=== PATIENT | male | born 1950 | race Caucasian/White ===

== ENCOUNTER 2021-02-22 02:45 | Inpatient (IN) | payer MEDICARE, OTHER, SELFPAY ==
[2021-02-22] VITALS (27 sets, daily range): BP systolic 109–150; BP diastolic 56–95; PULSE 63–106; RESP 16–33; TEMP 35.7–36.9; O2SAT 91–100; BMI 38.0; BMI 36.8
--- NOTE | ~2021-02-22 | XR_ITS ---
EXAMINATION: XR chest 1V portable EXAM DATE: 02/22/2021 03:34 INDICATION: cough,sob,hx copd and CHF. TECHNIQUE: Portable AP frontal chest x-ray was obtained. There is no prior study for comparison. FINDINGS: There is moderate amount of bibasilar pneumonia or edema. There is enlarged cardiac silhoue tte. There is a dual lead pacemaker/AICD seen with leads projecting over the expected locations of th e right atrial appendage and right ventricle. Small pleural effusion. IMPRESSION: 1. Bibasilar pneumonia or edema. 2. Cardiomegaly and/or pericardial effusion. 3. Small left pleural effusion. Reviewed, dictated and finalized at location A. STRAIGHTENER
--- NOTE | 2021-02-22 02:46 | ECG_ITS ---
Measurements Intervals [place] Rate: 79 P: [place]: 0 QRS: 40 QRSD: 169 T: -44 QT: 449 QTc: 516 Interpretive Statements ATRIAL FIBRILLATION ELECTRONIC VENTRICULAR PACEMAKER COMPLEXES RIGHT BUNDLE BRANCH BLOCK BASELINE ARTIFACT- I, II, AVR, AVF, V1, V3-V5 ABNORMAL ECG Electronically Signed On 02-22-2021 7:48:06 CARD CLOTHIER by Kelvin Guzmán D.O.
--- NOTE | 2021-02-22 02:52 | ED.SOB ---
HPI - SOB/Dyspnea General Chief Complaint: Shortness of Breath/Dyspnea Stated Complaint: sob ra 70's, cpap 90-92 % Source: RN notes reviewed History of Present Illness HPI Narrative: Patient presents emergency department from home via EMS for shortness of breath. Patient states he had a cough for the past several days states has been nonproductive and he has had history of having to Covid vaccinations. This evening the patient woke up from sleep coughing and feeling short of breath when EMS arrived the patient was noted to be satting in the 70s at that time the patient was started on CPAP with improvement to the upper 80s patient states he does have a history of COPD and CHF he denies any increased swelling he denies any denies any chest pain at this time Related Data Allergies Allergy/AdvReac Type Severity Reaction Status Date / Time codeine Allergy Rash Verified 02/22/21 02:56 Penicillins Allergy Unknown Verified 02/22/21 02:56 Review of Systems Review of Systems: Gen.: Denies fevers or chills ENT: Denies congestion Respiratory: See HPI CV: Denies chest pain or palpitations GI: Denies abdominal pain nausea, emesis or diarrhea denies burning, urgency, frequency or hematuria Musculoskeletal: Denies back pain or muscle pain Neuro: Denies numbness, tingling, weakness or focal weakness Skin: Denies rash Except as documented, all other systems reviewed and negative [facility] Past Medical History Medical History (Updated 02/22/21 @ 04:42 by Jabier Vaz DO) CHF (congestive heart failure) COPD (chronic obstructive pulmonary disease) Social History Social History (Updated 02/22/21 @ 04:40 by Jabier Vaz DO) Smoking status: Former smoker Exam Narrative: APPEARANCE: Moderate respiratory distress sitting upright speaking in short phrases HEENT: Normocephalic, atraumatic OMM RESPIRATORY: No respiratory distress sitting upright speaking in short phrases decreased breath sounds at the bilateral lung avalos with coarse breath sounds in the bilateral lung bases CARDIOVASCULAR: Regular rate and rhythm without murmurs rubs or gallops. ABDOMINAL: Soft, nontender, nondistended, no rebound or guarding MUSCULOSKELETAl: Moves all extremities. No clubbing, cyanosis or edema. Bilateral calves soft and nontender NEURO: Awake and alert. Following commands, speech normal, no focal deficits SKIN:: Warm, dry. Normal Color PSYCHIATRIC: Normal affect/mood, Course Course Emergency Course: Patient placed on BiPAP in ED with improvement of oxygenation status Discussed Dr. Escobar presentation work-up agrees with admission at this time. Request patient swab for COVID-19 Discussed with patient and family results of workup and diagnosis. Discussed need for admission. Patient and family understand and agree to current treatment plan Vital Signs Vital signs: Vital Signs Pulse Rate 72 02/22/21 02:41 Respiratory Rate 23 H 02/22/21 02:41 Blood Pressure 132/76 02/22/21 02:41 Pulse Oximetry 91 02/22/21 02:41 Pulse Rate 65 02/22/21 04:22 Respiratory Rate 25 H 02/22/21 04:22 Blood Pressure 116/68 02/22/21 04:22 Pulse Oximetry 97 02/22/21 04:22 MDM - SOB/Dyspnea Lab Data Result diagrams: 02/22/21 02:56 02/22/21 02:56 Labs: Lab Results 02/22/21 02/22/21 02/22/21 Range/Units 02:56 02:56 02:56 WBC 5.7 (4.5-10.0) K/mm3 RBC 5.00 (4.6-6.20) M/mm3 Hgb 15.8 (14.0-18.0) g/dL Hct 47.5 (42.0-52.0) % MCV 95.0 (80-100) fl MCH 31.6 (26-34) pg MCHC 33.3 (32-36) g/dl RDW 14.2 (11.5-14.5) % Plt Count 137 L (150-375) k/mm3 MPV 11.9 H (7.4-10.4) fl Immature Gran % (Auto) 0.7 H (0-0.5) % Neut % (Auto) 72.9 (45.5-73.1) % Lymph % (Auto) 17.3 L (18.3-44.2) % Coffey % (Auto) 4.9 (2.6-8.5) % Eos % (Auto) 3.3 (0-4.4) % Baso % (Auto) 0.9 (0.2-1.2) % Lymph # (Auto) 0.99 (0.9-3.2) K/mm3 Coffey # (Auto) 0.3 (0.
[2021-02-22] MEDS: ALBUTEROL SULFATE NEB 2.5 MG/0.5 ML INH 5 MG INHALATION ×3 (03:04→21:23)
[2021-02-22] MEDS: IPRATROPIUM BR 0.02% INH SOLN 0.5 MG/2.5 ML VIAL INHALATION ×3 (03:04→21:22)
[2021-02-22] MEDS: methylPREDNISolone SOD SUCC 125 MG VIAL IV PUSH (03:05)
[2021-02-22 03:13] LABS: Alveolar/Arterial O2 Gradient 549.9 mmHg; Base Excess ABG -3.4 mEq/l (+/-2.0); Device BIPAP; Expiratory Pressure 8 cmH2O; Fractional Inspired Oxygen 100 %; HCO3 ABG 20.8 mEq/l (22.0-26.0); Inspiratory Pressure 14 cmH2O; Modified Allen's Test Pass; Oxygen Content ABG 21.1 %vol (16.0-22.0); Oxygen Saturation ABG 98.5 % (95.0-100.0); Oxyhemoglobin 95.5 % THb (90.0-100.0); PCO2 ABG 35.2 mmHg (35.0-45.0); PO2 ABG 127.9 mmHg (80.0-100.0); PO2 FiO2 Ratio Arterial Blood 1.28 %; Site Drawn LEFT RADIAL; Total Hemoglobin 15.6 g/dL (12.0-18.0); pH ABG 7.389 (7.350-7.450)
[2021-02-22 03:22] LABS: Basophils Absolute Auto 0.1 K/mm3 (0.0-0.1); Basophils Percent Auto 0.9 % (0.2-1.2); Eosinophils Absolute Auto 0.2 K/mm3 (0-0.3); Eosinophils Percent Auto 3.3 % (0-4.4); Hematocrit 47.5 % (42.0-52.0); Hemoglobin 15.8 g/dL (14.0-18.0); Immature Granulocyte Absolute 0.04 K/mm3 (0.00-0.031); Immature Granulocyte Percent A 0.7 % (0-0.5); Immature Platelet Fraction Pct 10.4 % (0.9-11.2); Lymphocytes Absolute Auto 0.99 K/mm3 (0.9-3.2); Lymphocytes Percent Auto 17.3 % (18.3-44.2); Mean Corpuscular HGB Conc 33.3 g/dl (32-36); Mean Corpuscular Hemoglobin 31.6 pg (26-34); Mean Platelet Volume 11.9 fl (7.4-10.4); Monocytes Absolute Auto 0.3 K/mm3 (0.1-0.6); Monocytes Percent Auto 4.9 % (2.6-8.5); Neutrophils Absolute Auto 4.2 K/mm3 (1.3-6.7); Neutrophils Percent Auto 72.9 % (45.5-73.1); Platelet Count Result 137 k/mm3 (150-375); Red Cell Distribution Width 14.2 % (11.5-14.5); White Blood Count 5.7 K/mm3 (4.5-10.0)
[2021-02-22 03:30] LABS: Lactic Acid Reflex 1.1 mmol/L (0.7-2.1)
[2021-02-22 03:31] LABS: Alanine Aminotransferase 23 U/L (4-50); Albumin Level 4.5 g/dL (3.5-5.1); Alkaline Phosphatase 108 U/L (38-126); Anion Gap 7 mmol/L (8-16); Aspartate Amino Transferase 31 U/L (17-59); Bilirubin,Total 0.8 mg/dL (0.2-1.3); Blood Urea Nitrogen 15 mg/dL (9-20); Calcium 8.2 mg/dL (8.4-10.2); Carbon Dioxide 20 mmol/L (22-30); Chloride 103 mmol/L (98-107); Estimated CRCL calculation 103 ml/min; Estimated Glomerular Filt Rate > 60; Glucose 127 mg/dL (65-110); Potassium 4.8 mmol/L (3.4-5.0); Sodium 130 mmol/L (137-145)
[2021-02-22 03:47] LABS: INR 1.1; Prothrombin Time 13.7 Seconds (11.1-14.7)
[2021-02-22 03:48] LABS: Partial Thromboplastin Time 52.7 SECONDS (22.3-36.8)
[2021-02-22 03:49] LABS: NT Pro B Type Natriuretic Pept 1690 pg/mL (5-100); Troponin I < 0.012 ng/mL (0.000-0.034)
[2021-02-22] MEDS: SODIUM CHLORIDE 0.9% IV 1,000 ML 999 ML IV CONT (03:55)
--- NOTE | 2021-02-22 06:38 | ADMGEN ---
This patient, Braden Costa, was admitted to [facility] Bed Second Floor-2. Patient/family oriented to hospital policies and general routines including ID bracelet, bed and alarms, visiting hours, pain management, procedures, bathroom and other care routines, personal items, smoking policy, room service/diet, and visiting hours. Information on how to activate the Rapid Response Team has been discussed. Patient/Family are encouraged to report perceived risks to care and to ask questions if they do not understand what they are told or what they should do.
[2021-02-22 07:26] LABS: Troponin I < 0.012 ng/mL (0.000-0.034)
--- NOTE | 2021-02-22 08:03 | PM.IMHP ---
H&P: HPI History of Present Illness Date/Time: 02/22/21 08:03 Chief Complaint: shortness of breath Narrative: Patient presents to the ED from home for shortness of breath. He reports that he came back from [place] last evening when to better 6:00 p.m. woke up suddenly at 2:00 a.m. 10 short of breath associated cough. He denies any chest pain or leg swelling. He has history of COPD as well as CHF, atrial fibrillation has pacemaker and AICD placed. He has been vaccinated for COVID x2. He has not gotten his booster yet. He reports he has been having mild cough over the past few days and was wheezy when he got short of breath last night. He called EMS who arrived and he is oxygen saturation was is 70s when EMS arrived. He was started on CPAP with improvement. He was brought to the ER has been placed on BiPAP since his been in the ER is taken off the BiPAP this morning and has has been feeling well. He has been placed on high-flow nasal cannula in the ER. He flew to [place] a week or 2 ago to visit his daughter. He does take Eliquis and has been taking it regularly. Review of Systems Review of Systems: - CONSTITUTIONAL: Denies weight loss, fever and chills. - HEENT: Denies changes in vision and hearing - RESPIRATORY: Reports SOB and cough. - CV: Denies palpitations and CP. - GI: Denies abdominal pain, nausea, vomiting and diarrhea. - : Denies dysuria and urinary frequency. - MSK: Denies myalgia and joint pain. - SKIN: Denies rash and pruritus. - NEUROLOGICAL: Denies headache and syncope. - PSYCHIATRIC: Denies recent changes in mood. Denies anxiety and depression. All systems reviewed & are unremarkable except as noted in HPI and below Constitutional: Constitutional: Reports fatigue and Reports weakness Neurologic: Reports weakness Endocrine: Endocrine: Reports fatigue [facility] Past Medical History Medical History (Updated 02/22/21 @ 04:42 by Jabier Vaz DO) CHF (congestive heart failure) COPD (chronic obstructive pulmonary disease) Social History Social History (Updated 02/22/21 @ 04:40 by Jabier Vaz DO) Years smoked: 49 Smoking status: Current every day smoker Tobacco type: cigarettes Additional smoking assessment comments: smoked 3 ppd for many years Alcohol intake: former Substance use: never Gender identity (if verbalized by the patient): Male Spiritual care concerns: No Meds Home Medications and Allergies Home Medications Medication Instructions Recorded Confirmed Type amiodarone 200 mg PO DAILY 02/22/21 02/22/21 History amlodipine 10 mg PO DAILY 02/22/21 02/22/21 History apixaban [Eliquis] 5 mg PO BID 02/22/21 02/22/21 History atorvastatin 80 mg PO DAILY 02/22/21 02/22/21 History carvedilol 50 mg PO Q12H 02/22/21 02/22/21 History lisinopril 40 mg PO DAILY 02/22/21 02/22/21 History metformin 500 mg PO BIDWMEAL 02/22/21 02/22/21 History pantoprazole [Protonix] 40 mg PO QAM 02/22/21 02/22/21 History Allergies Allergy/AdvReac Type Severity Reaction Status Date / Time codeine Allergy Rash Verified 02/22/21 02:56 Penicillins Allergy Unknown Verified 02/22/21 02:56 Vital Signs Vital Signs - 24 hr 02/22/21 02:41 02/22/21 02:54 02/22/21 02:56 Pulse Rate 72 70 Respiratory Rate 23 H 26 H Blood Pressure 132/76 Pulse Oximetry 91 94 95 02/22/21 03:04 02/22/21 03:21 02/22/21 03:24 Pulse Rate 67 63 Respiratory Rate 22 H 19 Blood Pressure 109/58 L Pulse Oximetry 99 100 02/22/21 03:25 02/22/21 04:22 02/22/21 05:40 Pulse Rate 68 65 71 Respiratory Rate 20 25 H 33 H Blood Pressure 116/68 Pulse Oximetry 97 96 02/22/21 05:41 02/22/21 06:22 02/22/21 06:43 Pulse Rate 75 74 71 Respiratory Rate 17 21 H 18 Blood Pressure 130/95 H 150/77 H Pulse Oximetry 96 99 99 02/22/21 07:19 Pulse Rate 68 Respiratory Rate 18 Blood Pressure 132/76 Pulse Oximetry 98 Exam Narrative: APPEARANCE: No respiratory distress current
--- NOTE | 2021-02-22 08:26 | PC.NURSE ---
Patient requesting food and water but did not have diet order. Called Dr. Douglas at this time. Informed to take patient off bipap and see how he tolerates and to do a cardiac diet. This order was placed. ED resp called. Removed bipap. Patient tolerating nasal canula well. Meal tray ordered. Will continue to monitor patient.
[2021-02-22 09:38] LABS: Troponin I < 0.012 ng/mL (0.000-0.034)
--- NOTE | 2021-02-22 13:30 | PC.NURSE ---
called the hospital doctor who will be seeing this patient regarding home medications. Reports he will be coming down soon to see patient. Will continue to monitor patient.
[2021-02-22] MEDS: APIXABAN 5 MG TABLET PO (15:58)
[2021-02-22] MEDS: amLODIPine BESYLATE 5 MG TABLET 10 MG PO (15:59)
[2021-02-22] MEDS: AMIODARONE HCL 200 MG TABLET PO (15:59)
[2021-02-22] MEDS: carvediloL 25 MG TABLET 50 MG PO (15:59)
[2021-02-22] MEDS: PANTOPRAZOLE 40 MG TABLET PO (16:00)
[2021-02-22] MEDS: lisinopriL 20 MG TABLET 40 MG PO (16:00)
[2021-02-22] MEDS: methylPREDNISolone SOD SUCC 40 MG VIAL IV PUSH ×2 (16:01→21:00)
[2021-02-22 17:34] LABS: Glucose Point of Care 172 mg/dl (65-105)
[2021-02-22 17:35] LABS: SARS-CoV-2 RNA PCR Negative (Negative)
--- NOTE | 2021-02-22 17:38 | PC.NURSE ---
Report called to IMU at this time.
[2021-02-22 19:14] LABS: Hemoglobin A1C 6.5 % (<5.7)
[2021-02-22] MEDS: ATORVASTATIN 40 MG TABLET 80 MG PO (20:30)
[2021-02-22 21:07] LABS: Glucose Point of Care 157 mg/dl (65-105)
[2021-02-23] VITALS (12 sets, daily range): BP systolic 110–166; BP diastolic 52–83; PULSE 70–86; RESP 16–30; TEMP 35.9–36.5; O2SAT 93–99
--- NOTE | 2021-02-23 | ECHO_ITS ---
Patient Info Name: Braden Costa Age: 70 years : 1950 Gender: Male Ht: 68 in Wt: 250 lbs BSA: 2.38 m2 HR: 75 bpm BP: 126 / 63 mmHg Heart Rhythm: Atrial Fibrillation Technical Quality: Fair Exam Date: 02/23/2021 8:30 AM Exam Location: [facility] Patient Status: Inpatient Admit Date: 02/22/2021 Staff Ordering Physician: Epi Douglas MD Post Anesthesia Care Unit Nurse: Bruna Sheets RDCS Attending Provider: Bi Odom MD Exam Type: CA echo doppler color flow Study Info Indications - CHF Complete two-dimensional, color flow and Doppler transthoracic echocardiogram is performed. Summary 1. Complete two-dimensional, color flow and Doppler transthoracic echocardiogram is performed. 2. Left ventricular chamber dimension is moderately enlarged. 3. Left ventricular systolic function is mildly reduced, estimated at 45-50%. 4. There is moderately increased left ventricular wall thickness. 5. The left ventricular diastolic function is grade II diastolic dysfunction. 6. The basal inferior wall, basal inferolateral wall, and mid inferolateral wall are akinetic. 7. The anterolateral wall, apical inferior wall, and mid inferior wall are hypokinetic. 8. Left atrial chamber dimension is moderately enlarged. 9. Right atrial chamber dimension is mildly enlarged. 10. There is mild to moderate aortic valve regurgitation. 11. There is mild mitral valve regurgitation. 12. There is mild tricuspid valve regurgitation. 13. Mild pulmonary hypertension, estimated pulmonary arterial systolic pressure is 39 mmHg. 14. There is mild pulmonic regurgitation. 15. The aortic root size at the sinus of Valsalva is moderately dilated. 16. The prox ascending aorta size is moderately dilated. 17. Maintenance evaluation of the aortic root enlargement should be performed as an outpatient as it measures up to 4.9 cm. Left Ventricle Left ventricular chamber dimension is moderately enlarged. Left ventricular systolic function is mildly reduced, estimated at 45-50%. There is moderately increased left ventricular wall thickness. The left ventricular diastolic function is grade II diastolic dysfunction. The basal inferior wall, basal inferolateral wall, and mid inferolateral wall are akinetic. The anterolateral wall, apical inferior wall, and mid inferior wall are hypokinetic. All other hale appear normal. Right Ventricle Right ventricular chamber dimension is normal. Right ventricular systolic function is normal. Left Atria Left atrial chamber dimension is moderately enlarged. Right Atria Right atrial chamber dimension is mildly enlarged. Atrial Septum Intact interatrial septum visualized by color flow imaging. Aortic Valve The aortic valve is trileaflet. There is mild aortic valve sclerosis. There is no aortic valve stenosis. There is mild to moderate aortic valve regurgitation. Pulmonic Valve The pulmonic valve is normal. There is no pulmonic valve stenosis. There is mild pulmonic regurgitation. Mitral Valve The mitral valve has thickened leaflets. There is no mitral valve stenosis. There is mild mitral valve regurgitation. Tricuspid Valve The tricuspid valve leaflets are normal. There is no significant tricuspid valve stenosis. There is mild tricuspid valve regurgitation. Mild pulmonary hypertension, estimated pulmonary arterial systolic pressure is 39 mmHg. Other Findings Maintenance evaluation of the aortic root enlargement should be performed as
[2021-02-23] MEDS: ALBUTEROL SULFATE NEB 2.5 MG/0.5 ML INH 5 MG INHALATION (03:33)
[2021-02-23] MEDS: IPRATROPIUM BR 0.02% INH SOLN 0.5 MG/2.5 ML VIAL INHALATION (03:34)
[2021-02-23] MEDS: methylPREDNISolone SOD SUCC 40 MG VIAL IV PUSH (05:11)
[2021-02-23 05:15] LABS: Basophils Percent Auto 0.1 % (0.2-1.2); Hematocrit 43.9 % (42.0-52.0); Hemoglobin 14.6 g/dL (14.0-18.0); Immature Granulocyte Absolute 0.07 K/mm3 (0.00-0.031); Immature Granulocyte Percent A 0.9 % (0-0.5); Lymphocytes Absolute Auto 0.59 K/mm3 (0.9-3.2); Lymphocytes Percent Auto 7.5 % (18.3-44.2); Mean Corpuscular HGB Conc 33.3 g/dl (32-36); Mean Corpuscular Hemoglobin 31.4 pg (26-34); Mean Corpuscular Volume 94.4 fl (80-100); Mean Platelet Volume 12.3 fl (7.4-10.4); Monocytes Absolute Auto 0.1 K/mm3 (0.1-0.6); Monocytes Percent Auto 1.6 % (2.6-8.5); Neutrophils Absolute Auto 7.1 K/mm3 (1.3-6.7); Neutrophils Percent Auto 89.9 % (45.5-73.1); Platelet Count Result 117 k/mm3 (150-375); Red Blood Count 4.65 M/mm3 (4.6-6.20); Red Cell Distribution Width 14.1 % (11.5-14.5); White Blood Count 7.9 K/mm3 (4.5-10.0)
[2021-02-23 05:29] LABS: Anion Gap 7 mmol/L (8-16); Blood Urea Nitrogen 17 mg/dL (9-20); Calcium 8.2 mg/dL (8.4-10.2); Carbon Dioxide 19 mmol/L (22-30); Chloride 104 mmol/L (98-107); Estimated CRCL calculation 102 ml/min; Estimated Glomerular Filt Rate > 60; Glucose 215 mg/dL (65-110); Potassium 4.3 mmol/L (3.4-5.0); Sodium 130 mmol/L (137-145)
[2021-02-23 08:10] LABS: Glucose Point of Care 149 mg/dl (65-105)
[2021-02-23] MEDS: PANTOPRAZOLE 40 MG TABLET PO (09:14)
[2021-02-23] MEDS: amLODIPine BESYLATE 5 MG TABLET 10 MG PO (09:14)
[2021-02-23] MEDS: APIXABAN 5 MG TABLET PO (09:15)
[2021-02-23] MEDS: carvediloL 25 MG TABLET 50 MG PO (09:15)
[2021-02-23] MEDS: lisinopriL 20 MG TABLET 40 MG PO (09:15)
[2021-02-23] MEDS: AMIODARONE HCL 200 MG TABLET PO (09:16)
[2021-02-23] MEDS: ATORVASTATIN 40 MG TABLET 80 MG PO (09:16)
[2021-02-23 11:58] LABS: Glucose Point of Care 176 mg/dl (65-105)
[2021-02-23] MEDS: SPIRONOLACTONE 25 MG TABLET PO (13:36)
--- NOTE | 2021-02-23 15:24 | PM.DS ---
DS: Admitting Diagnosis Discharge Date 02/23/2021 Admitting Diagnosis Shortness of breath DS: Discharge Diagnosis Discharge Diagnosis (1) Acute respiratory failure with hypoxia: Code(s): J96.01 - Acute respiratory failure with hypoxia Status: Acute (2) Community acquired pneumonia: Code(s): J18.9 - Pneumonia, unspecified organism Status: Acute (3) COPD (chronic obstructive pulmonary disease): Code(s): J44.9 - Chronic obstructive pulmonary disease, unspecified Status: Acute (4) CHF (congestive heart failure): Code(s): I50.9 - Heart failure, unspecified Status: Acute DS: Summary Hospital Course Hospital Course: Patient presents to the ED from home for shortness of breath. He reports that he came back from [place] last evening when to better 6:00 p.m. woke up suddenly at 2:00 a.m. 10 short of breath associated cough. He denies any chest pain or leg swelling. He has history of COPD as well as CHF, atrial fibrillation has pacemaker and AICD placed. He has been vaccinated for COVID x2. He has not gotten his booster yet. He reports he has been having mild cough over the past few days and was wheezy when he got short of breath last night. He called EMS who arrived and he is oxygen saturation was is 70s when EMS arrived. He was started on CPAP with improvement. He was brought to the ER has been placed on BiPAP since his been in the ER is taken off the BiPAP this morning and has has been feeling well. He has been placed on high-flow nasal cannula in the ER. He flew to [place] a week or 2 ago to visit his daughter. He does take Eliquis and has been taking it regularly. # acute hypoxic respiratory failure needing bipap on arrival. Oxygen saturation on is 70s upon EMS arrival at home. Treated with Solu Medrol and antibiotics in the ER. Chest x-ray with bibasilar pneumonia. Tapered his BiPAP and placed on high-flow nasal cannula subsequently the oxygen was tapered off. Remained off oxygen for the past 12 hours. Ambulated without any difficulty prior to discharge. He was COVID swab out and came back negative. Symptoms and presentation suggestive more of COPD exacerbation. No congestive changes in the chest x-ray however BNP mildly elevated which is probably chronic due to her history of the congestive heart failure and the AICD and pacemaker placement. The there is a history of recent travel however he is fully anticoagulated with apixaban and hence less likely to be pulmonary embolism as the etiology for his hypoxic respiratory failure. He was treated only for COPD exacerbation during hospital course with excellent response. Will continue to taper his steroid as outpatient basis along with oral antibiotics for a week and have him follow-up with his primary care. He is also moving to live in [place] with 1 of his kids and need to establish with cardiologists here due to his history of cardiac disease. # Bibasilar pneumonia Levaquin ordered which will be continued. Continue Levaquin at discharge # COVID suspect: COVID swab continue droplet precautions COVID swab came back negative # S/p AICD/pacemaker placement # Mild tcp continue to monitor # COPD exacerbation: will continue steroid solumedrol. bronchodilators. antibiotics. levaquin # CHF: BNP mildly elevated. possible exacerbation.continue home medications. On Lasix at home does not look volume overloaded. Continue to monitor volume status. Looks euvolemic continue his diuretic at discharge as previously prescribed # history of left leg DVT in the past # DVT proph:on apixaban # Code status: Full code discussed with the patient Time Spent with Patient Time attestation: Total time spent providing and/or coordinating discharge services: 40 minutes Exam Narrative: APPEARANCE: No respiratory distress currently comfortable on high-flow nasal cannula HEENT: Normocephalic, atraumatic RESPIRATORY: No respiratory distress sitting upright bila
== END 2021-02-23 17:02 | disposition home or self-care (01) | DRG 190 ==
LOC: ANHED 04:42 → ANH2MED 04:53 → ANHIMU 18:03 → ANH2MED 02-24 13:50 → ANHIMU 02-24 13:50
PROVIDERS: Admitting Provider Internal Medicine; Emergency Provider Emergency Medicine; PCP Hospitalist; Visit Provider Internal Medicine
DX: J44.1 Chronic obstructive pulmonary disease with (acute) exacerbation (principal); J96.01 Acute respiratory failure with hypoxia; J18.9 Pneumonia, unspecified organism; J44.0 Chronic obstructive pulmonary disease with (acute) lower respiratory infection; Z20.822 Contact with and (suspected) exposure to COVID-19; I50.9 Heart failure, unspecified; F17.210 Nicotine dependence, cigarettes, uncomplicated; Z79.01 Long term (current) use of anticoagulants; Z79.899 Other long term (current) drug therapy; Z95.810 Presence of automatic (implantable) cardiac defibrillator; Z86.718 Personal history of other venous thrombosis and embolism
CPT/HCPCS: 36415; 36600; 71045; 80048; 80053; 82805; 82948; 83036; 83605; 83880; 84484; 85025; 85055; 85610; 85730; 87040; 93005; 93306; 94640; 96365; 96375; 99291; A9270; C9803; G0378; J1956; J2920; J2930; J7030; U0003; U0005

== ENCOUNTER 2022-04-22 21:27 | Inpatient (IN) | payer MEDICARE, OTHER, SELFPAY ==
[2022-04-22] VITALS (7 sets, daily range): BP systolic 118–120; BP diastolic 88–95; PULSE 83–120; RESP 19–37; TEMP 36.6; O2SAT 87–100
--- NOTE | ~2022-04-22 | XR_ITS ---
XR chest 1V portable DATE: 04/22/2022 22:08 INDICATION: Dyspnea TECHNIQUE: Portable AP chest on April 22, 2022 at 2205 hours COMPARISON: 02/14/2021 portable AP chest FINDINGS: There are bilateral pulmonary infiltrates and/or atelectasis involving the mid and particul anastasiya lower lung zones. Cardiomegaly. Aortic calcification. Left dual-lead pacemaker with leads overlying right atrium and ri ght ventricle. No pleural effusion or pulmonary vascular congestion or pneumothorax is evident. IMPRESSION: Bilateral mid and particularly lower lung infiltrates and/or atelectasis Cardiomegaly, aortic atherosclerosis Bipolar pacemaker is Reviewed, dictated and finalized at location A. GETTER IMPRESSION: Bilateral mid and particularly lower lung infiltrates and/or atelec tasis Cardiomegaly, aortic atherosclerosis Bipolar pacemaker is
--- NOTE | 2022-04-22 21:35 | ECG_ITS ---
Measurements Intervals [place] Rate: 107 P: OR: 0 QRS: 58 QRSD: 142 T: -39 QT: 375 QTc: 502 Interpretive Statements ATRIAL FIBRILLATION WITH RAPID VENTRICULAR RESPONSE BASELINE ARTIFACT RIGHT BUNDLE-BRANCH BLOCK ABNORMAL ECG COMPARED TO ECG 02/22/2021 02:47:17 NO SIGNIFICANT CHANGES Electronically Signed On 04-25-2022 15:18:48 TRACK HOE OPERATOR by Javier Morales M.D.
[2022-04-22 22:06] LABS: Alveolar/Arterial O2 Gradient 218.4 mmHg; Fractional Inspired Oxygen 50 %; HCO3 ABG 20.9 mEq/l (22.0-26.0); Oxygen Content ABG 22.8 %vol (16.0-22.0); Oxygen Saturation ABG 97.6 % (95.0-100.0); Oxyhemoglobin 96.1 % THb (90.0-100.0); PCO2 ABG 34.6 mmHg (35.0-45.0); PO2 ABG 99.2 mmHg (80.0-100.0); PO2 FiO2 Ratio Arterial Blood 1.98 %; Total Hemoglobin 16.8 g/dL (12.0-18.0); pH ABG 7.399 (7.350-7.450)
[2022-04-22 22:07] LABS: Device NON-INVASIVE VENT; Modified Allen's Test Pass; Non-Invasive Vent Rate 12 /MIN; Site Drawn RIGHT RADIAL
[2022-04-22 22:08] LABS: Non-Invasive Expiratory Pressure 8 CMH2O; Non-Invasive Inspiratory Pressure 14 CMH2O
[2022-04-22] MEDS: methylPREDNISolone SOD SUCC 125 MG VIAL IV PUSH (22:12)
[2022-04-22] MEDS: SODIUM CHLORIDE 0.9% IV 1,000 ML 999 ML IV CONT (22:12)
[2022-04-22 22:13] LABS: Basophils Absolute Auto 0.1 K/mm3 (0.0-0.1); Eosinophils Absolute Auto 0.2 K/mm3 (0-0.3); Eosinophils Percent Auto 2.4 % (0-4.4); Immature Granulocyte Absolute 0.04 K/mm3 (0.00-0.031); Immature Granulocyte Percent A 0.5 % (0-0.5); Lymphocytes Percent Auto 32.3 % (18.3-44.2); Mean Corpuscular HGB Conc 32.7 g/dl (32-36); Mean Corpuscular Hemoglobin 30.4 pg (26-34); Mean Corpuscular Volume 92.9 fl (80-100); Mean Platelet Volume 12.3 fl (7.4-10.4); Monocytes Absolute Auto 0.4 K/mm3 (0.1-0.6); Monocytes Percent Auto 5.1 % (2.6-8.5); Neutrophils Absolute Auto 5.1 K/mm3 (1.3-6.7); Neutrophils Percent Auto 58.7 % (45.5-73.1); Platelet Count Result 210 k/mm3 (150-375); Red Cell Distribution Width 15.8 % (11.5-14.5); White Blood Count 8.7 K/mm3 (4.5-10.0)
[2022-04-22] MEDS: ALBUTEROL SULFATE NEB 2.5 MG/3 ML INH 15 MG INHALATION (22:16)
[2022-04-22 22:20] LABS: INR 1.2; Prothrombin Time 14.3 Seconds (11.1-14.7)
[2022-04-22 22:22] LABS: Partial Thromboplastin Time 55.1 SECONDS (22.3-36.8)
[2022-04-22] MEDS: IPRATROPIUM BR 0.02% INH SOLN 0.5 MG/2.5 ML VIAL 2 MG INHALATION (22:22)
[2022-04-22 22:23] LABS: Alanine Aminotransferase 20 U/L (6-50); Albumin Level 4.8 g/dL (3.5-5.1); Alkaline Phosphatase 119 U/L (38-126); Anion Gap 11 mmol/L (8-16); Aspartate Amino Transferase 22 U/L (17-59); Bilirubin,Total 0.7 mg/dL (0.2-1.3); Blood Urea Nitrogen 20 mg/dL (9-20); Calcium 9.2 mg/dL (8.4-10.2); Carbon Dioxide 25 mmol/L (22-30); Chloride 98 mmol/L (98-107); Estimated CRCL calculation 68 ml/min; Estimated Glomerular Filt Rate > 60; Glucose 141 mg/dL (65-110); Magnesium 2.2 mg/dL (1.6-2.3); Sodium 134 mmol/L (137-145)
[2022-04-22 22:34] LABS: NT Pro B Type Natriuretic Pept 8990 pg/mL (19.9-100); Troponin I < 0.012 ng/mL (0.000-0.034)
--- NOTE | 2022-04-22 22:38 | ED.GENADULT ---
HPI - General Adult General Chief complaint: Shortness of Breath/Dyspnea Stated complaint: sob Time Seen by Provider: 04/22/22 21:32 History of Present Illness HPI narrative: Patient is 71-year-old gentleman who presents the emergency department with chief complaint of shortness of breath. Patient has prior history of COPD and CHF and reports that today he started getting more short of breath. Patient stated he got extremely anxious and EMS was called. The patient was found to be hypoxic on room air and was extremely tachypneic. Patient was given a breathing treatment in route and was placed immediately on BiPAP upon arrival to the emergency department the patient was now able to provide history and was feeling much more relaxed after starting on BiPAP Related Data Home Medications Medication Instructions Recorded Confirmed amiodarone 200 mg tablet 200 mg PO DAILY 02/22/21 02/22/21 amlodipine 10 mg tablet 10 mg PO DAILY 02/22/21 02/22/21 apixaban 5 mg tablet (Eliquis) 5 mg PO BID 02/22/21 02/22/21 atorvastatin 80 mg tablet 80 mg PO DAILY 02/22/21 02/22/21 carvedilol 25 mg tablet 50 mg PO Q12H 02/22/21 02/22/21 lisinopril 40 mg tablet 40 mg PO PRN 02/22/21 02/23/21 metformin 500 mg tablet 500 mg PO BIDWMEAL 02/22/21 02/22/21 pantoprazole 40 mg tablet,delayed 40 mg PO QAM 02/22/21 02/22/21 release (Protonix) furosemide 40 mg tablet (Lasix) 40 mg PO PRN PRN swelling 02/23/21 02/23/21 spironolactone 25 mg tablet 25 mg PO DAILY 02/23/21 02/23/21 (Aldactone) Allergies Allergy/AdvReac Type Severity Reaction Status Date / Time codeine Allergy Rash Verified 02/22/21 02:56 Penicillins Allergy Unknown Verified 02/22/21 02:56 Review of Systems Review of Systems: A 10 system review of systems was completed on the patient and is negative except for what is stated in the HPI. Nursing and ancillary documentation was reviewed. [facility] Past Medical History Medical History CHF (congestive heart failure) COPD (chronic obstructive pulmonary disease) Social History Social History Years smoked: 49 Smoking status: Current every day smoker Tobacco type: cigarettes Additional smoking assessment comments: smoked 3 ppd for many years Alcohol intake: former Substance use: never Gender identity (if verbalized by the patient): Male Spiritual care concerns: No Exam Narrative: GENERAL: Well-appearing, well-nourished, and in mild acute respiratory distress. HEAD: Normocephalic, atraumatic. EYES: PERRLA and EOMI. ENT: Nares clear, no rhinorrhea or epistaxis. Mucous membranes moist. NECK: Supple. CHEST: Increased respiratory drive with mild respiratory distress,. HEART: Irregular, tachycardic rate and rhythm. No murmur heard. Normal peripheral pulses. ABDOMEN: Soft, nontender, nondistended, normal active bowel sounds. EXTREMITIES: Normal range of motion. No edema. SKIN: Warm, dry, no rash. NEURO: No focal deficits. Alert and oriented x3. PSYCH: Normal mood and affect. Course Vital Signs Vital signs: Vital Signs Temperature 36.6 C 04/22/22 21:25 Pulse Rate 120 H 04/22/22 21:25 Respiratory Rate 37 H 04/22/22 21:25 Pulse Oximetry 87 L 04/22/22 21:25 Oxygen Delivery Nasal Cannula 04/22/22 21:25 Oxygen Flow Rate 4 04/22/22 21:25 Temperature 36.6 C 04/22/22 21:25 Pulse Rate 100 04/22/22 22:30 Respiratory Rate 30 H 04/22/22 22:30 Pulse Oximetry 98 04/22/22 22:30 Oxygen Delivery BiPAP 04/22/22 22:30 Oxygen Flow Rate 4 04/22/22 21:25 Medical Decision Making MDM Narrative Medical decision making narrative: EKG interpreted by me as atrial fibrillation with a rate of [address] elevation or ST depression Differential diagnosis includes COPD exacerbation, pneumonia, CHF exacerbation, atrial fibrillation with rapid ventricular response, viral upper respi
[2022-04-22] MEDS: FUROSEMIDE INJ 40 MG/4 ML VIAL IV PUSH (22:42)
[2022-04-22 22:46] LABS: Influenza A QL RT-PCR Negative (Negative); Influenza B QL RT-PCR Negative (Negative); RSV RNA, RT-PCR Negative (Negative); SARS-CoV-2 RNA PCR Negative
[2022-04-22 22:48] LABS: Procalcitonin 0.1 ng/mL
--- NOTE | 2022-04-22 23:24 | PM.IMHP ---
H&P: HPI History of Present Illness Date/Time: 04/22/22 23:24 Chief Complaint: Shortness of breath Narrative: This is a 71-year-old male with past medical history significant for atrial fibrillation, rate controlled anticoagulated, type 2 diabetes mellitus, COPD, congestive heart failure. Patient presents to the emergency room due to shortness of breath at the time of my visit history taking is limited as patient is on BiPAP. Arrived to emergency room via EMS he was noted to have really hard work of breathing upon arrival to emergency room immediately placed on BiPAP receive nebulizer treatment on route to the hospital. Patient relocated to the area from [facility] and it has been 2 years. Preliminary workup showed brain natriuretic peptide of 8000. A chest x-ray was reported was significant for acute lung edema. Patient is been admitted for further evaluation management and treatment. Review of Systems Review of Systems: ROS unobtainable: Yes unobtainable due to medical condition (Respiratory failure on BiPAP) PMFSH Past Medical History Medical History CHF (congestive heart failure) COPD (chronic obstructive pulmonary disease) Family History Family History (Updated 04/23/22 @ 02:37 by Ruth Hammond RN) Father Heart disease Myocardial infarction Mother Depression Dementia Sibling Heart disease Social History Social History Smoking packs per day: 3 Smoking cigarettes per day: 60.0 Years smoked: 49 Smoking pack-years: 147.00 Smoking status: Former smoker Tobacco type: cigarettes Smoking end date: 01/11/22 Additional smoking assessment comments: smoked 3 ppd for many years Alcohol intake: never Substance use: never Lack of Transportation: No Lack of Food: Never True Current Housing: I Have Housing Concerned About Future Housing: No Difficulty Paying Gas/Electric Bills: No Difficulty Paying for Meds: No Currently Unemployed: No Education: Bachelor's Degree Difficulty w/ Childcare or Family Care: No Gender identity (if verbalized by the patient): Male Spiritual care concerns: No Meds Home Medications and Allergies Home Medications Medication Instructions Recorded Confirmed Type apixaban 5 mg tablet (Eliquis) 5 mg PO BID 02/22/21 04/23/22 History atorvastatin 80 mg tablet 80 mg PO DAILY 02/22/21 04/23/22 History metformin 500 mg tablet 500 mg PO BIDWMEAL 02/22/21 04/23/22 History albuterol sulfate 2.5 mg/0.5 mL 5 mg inhalation Q6HRT #30 ea 02/23/21 04/23/22 Rx solution for nebulization albuterol sulfate 2.5 mg/3 mL 2.5 mg (3 mL) inhalation Q4H PRN 02/23/21 04/23/22 Rx (0.083 %) solution for nebulization COPD #90 mL nebulizer and compressor #1 ea 02/23/21 04/23/22 Rx doxycycline monohydrate 50 mg 50 mg PO DAILY 04/23/22 04/23/22 History capsule famotidine 20 mg tablet 20 mg PO BID 04/23/22 04/23/22 History furosemide 20 mg tablet 20 mg PO DAILY 04/23/22 04/23/22 History lisinopril 10 mg tablet 10 mg PO DAILY 04/23/22 04/23/22 History metoprolol tartrate 100 mg tablet 200 mg PO DAILY 04/23/22 04/23/22 History prednisolone acetate 1 % eye 1 drp EACH EYE USEASDIRECTD 04/23/22 04/23/22 History drops,suspension Allergies Allergy/AdvReac Type Severity Reaction Status Date / Time codeine Allergy Rash Verified 04/23/22 00:32 Penicillins Allergy Unknown Verified 04/23/22 00:32 Vital Signs Vital Signs - 24 hr 04/22/22 21:25 04/22/22 21:46 04/22/22 22:30 Temperature 97.9 F Pulse Rate 120 H 100 Respiratory Rate 37 H 30 H Pulse Oximetry 87 L 97 98 Oxygen Delivery Nasal Cannula BiPAP BiPAP Oxygen Flow Rate 4 Exam Narrative: Patient is laying in a stretcher on BiPAP Const: General: comfortable, no acute distress, well developed, alert, awake and average body habitus Nutritional Appearance: average body h
[2022-04-22 23:46] LABS: Appearance Urine Clear (Clear); Bacteria Urine None Seen /hpf; Bilirubin Urine Negative (Negative); Blood Urine Negative (Negative); Color Urine Yellow (Yellow); Glucose Urine UA Negative (Negative); Ketones Urine Negative (Negative); Leukocyte Esterase Ur Negative LEU/UL (Negative); Nitrate Urine Negative (Negative); Non Pathogenic Casts 0-2; Protein Urine 1+ mg/dL (Negative); RBC Urine 0-2 /hpf (0-2); Specific Grav Ur 1.008 (1.001-1.035); Squamous Epithelial Cell Urine None seen /hpf (Few); Urobilinogen Urine 0.2 mg/dL (<2.0); WBC Urine 0-5 /hpf
[2022-04-23] VITALS (27 sets, daily range): BP systolic 123–154; BP diastolic 69–92; PULSE 78–109; RESP 12–28; TEMP 36–36.9; O2SAT 90–100; BMI 39.7
[2022-04-23 00:03] LABS: Add Urine Microscopic? YES
--- NOTE | 2022-04-23 01:04 | ADMGEN ---
This patient, Braden Costa, was admitted to IMU Room 214-01 on 04/23/22 at 0102. Patient/family oriented to hospital policies and general routines including ID bracelet, bed and alarms, visiting hours, pain management, procedures, bathroom and other care routines, personal items, smoking policy, room service/diet, and visiting hours. Information on how to activate the Rapid Response Team has been discussed. Patient/Family are encouraged to report perceived risks to care and to ask questions if they do not understand what they are told or what they should do.
[2022-04-23] MEDS: ALBUTEROL SULFATE NEB 2.5 MG/3 ML INH INHALATION ×2 (01:47→08:27)
[2022-04-23] MEDS: IPRATROPIUM BR 0.02% INH SOLN 0.5 MG/2.5 ML VIAL INHALATION ×2 (01:47→08:28)
[2022-04-23 01:59] LABS: Troponin I 0.019 ng/mL (0.000-0.034)
[2022-04-23] MEDS: methylPREDNISolone SOD SUCC 125 MG VIAL 60 MG IV PUSH ×3 (06:17→21:09)
[2022-04-23 06:43] LABS: Troponin I 0.017 ng/mL (0.000-0.034)
[2022-04-23 08:17] LABS: Glucose Point of Care 147 mg/dl (65-105)
[2022-04-23] MEDS: ATORVASTATIN 40 MG TABLET 80 MG PO (09:18)
[2022-04-23] MEDS: METOPROLOL SUCCINATE EXT REL 100 MG TABCR 200 MG PO (09:18)
[2022-04-23] MEDS: APIXABAN 5 MG TABLET PO ×2 (09:18→20:06)
[2022-04-23] MEDS: DOXYCYCLINE HYCLATE 50 MG CAPSULE BY MOUTH (09:19)
[2022-04-23] MEDS: FAMOTIDINE 20 MG TABLET PO ×2 (09:19→16:13)
[2022-04-23] MEDS: FUROSEMIDE INJ 40 MG/4 ML VIAL IV PUSH ×2 (09:19→20:06)
[2022-04-23] MEDS: lisinopriL 10 MG TABLET PO (09:19)
[2022-04-23] MEDS: prednisoLONE ACETATE 1% OPHTH 5 ML 1 DROP EACH EYE ×3 (09:23→20:06)
--- NOTE | 2022-04-23 11:32 | PM.IMPN ---
Progress Note: A&P Assessment and Plan (1) CHF (congestive heart failure): Code(s): I50.9 - Heart failure, unspecified Status: Acute Assessment and Plan: Admit to IMU Aggressive diuresis Echocardiogram in a.m. Daily Strict intake and output Daily BMP Daily weights Supportive care Continue to monitor (2) Acute respiratory failure with hypoxia: Code(s): J96.01 - Acute respiratory failure with hypoxia Status: Acute Assessment and Plan: Supportive care Scheduled breathing treatments Try and keep oxygen saturation at 94% (3) COPD (chronic obstructive pulmonary disease): Code(s): J44.9 - Chronic obstructive pulmonary disease, unspecified Status: Acute Assessment and Plan: Continue breathing treatments (4) T2DM (type 2 diabetes mellitus): Code(s): E11.9 - Type 2 diabetes mellitus without complications Status: Acute Assessment and Plan: Holding metformin Insulin sliding scale as needed (5) Atrial fibrillation: Code(s): I48.91 - Unspecified atrial fibrillation Status: Acute Assessment and Plan: Rate control and anticoagulated Subjective Date/time seen: 04/23/22 11:32 Breathing is better Exam Narrative: Patient is laying in a stretcher on BiPAP Const: General: comfortable, no acute distress, well developed, alert, awake and average body habitus Nutritional Appearance: average body habitus Orientation/consciousness: patient oriented x3 HENMT: Head: normal to inspection, normocephalic and atraumatic Ears: hearing grossly normal bilaterally Face/Nose/Sinus: normal facial exam Face and sinus: normal facial exam Eyes: General: appearance normal, both eyes and all related structures Pupils: Equal, round and reactive pupils present EOM: EOMs intact bilaterally Neck: Neck: full ROM, no lymphadenopathy and no JVD Thyroid: thyroid normal Lymphatic: no lymphadenopathy noted Resp: Effort & Inspection: normal respiratory effort and able to speak in complete sentences Auscultation: crackles bilateral, wheezes and diminished lung sounds Cardio: Jugular venous distension: no JVD Rate: regular rate Rhythm: regular rhythm Heart sounds: S1 normal heart sound present and S2 normal heart sound present GI: Inspection: obesity : General: Yes deferred Skin: Rashes: no rashes Wounds: no wounds Neuro: General: patient oriented x3, CN's II-XI intact bilaterally and Unable to assess gait Cranial nerves: Yes CN's II-XII intact bilaterally and Yes Equal, round and reactive pupils present Cognition (Neuro): normal cognition Speech: normal speech Gait exam (Neuro): Unable to assess gait Motor exam (neuro): 5/5 motor strength present throughout Extrem: General: normal to inspection, full ROM, no joint enlargement and no pedal edema Objective Data Vital Signs Vital Signs: Vital Signs - 24 hr 04/22/22 21:25 04/22/22 21:46 04/22/22 22:30 Temperature 97.9 F Pulse Rate 120 H 100 Respiratory Rate 37 H 30 H Blood Pressure Pulse Oximetry 87 L 97 98 Oxygen Delivery Nasal Cannula BiPAP BiPAP Oxygen Flow Rate 4 Fraction of Inspired Oxygen 50 04/22/22 22:58 04/23/22 00:29 04/22/22 21:45 Temperature Pulse Rate 94 94 Respiratory Rate 19 17 Blood Pressure 120/88 136/92 H Pulse Oximetry 99 100 97 Oxygen Delivery BiPAP Oxygen Flow Rate Fraction of Inspired Oxygen 50 04/22/22 23:45 04/22/22 23:47 04/22/22 21:25 Temperature Pulse Rate 83 94 120 H Respiratory Rate 23 H 20 Blood Pressure 118/95 H Pulse Oximetry 100 100 Oxygen Delivery Oxygen Flow Rate Fraction of Inspired Oxygen 04/23/22 00:30 04/23/22 01:13 04/23/22 01:10 Temperature 98.2 F Pulse Rate 98 98 Respiratory Rate 26 H 26 H Blood Pressure 150/79 H Pulse Oximetry 100 95 95 Oxygen Delivery BiPAP BiPAP Oxygen Flow Rate Fraction of Inspired Oxygen 50 50 04/23/22 01:11 04/23/22 01:55 04/23/22 01:56 T
[2022-04-23 12:02] LABS: Glucose Point of Care 222 mg/dl (65-105)
--- NOTE | 2022-04-23 12:26 | PC.NURSE ---
This patient, Braden Costa, was transferred to [facility] on 04/23/22 at 1226. Personal belongings sent with patient. Report given to Anh. Appropriate documentation sent with patient.
[2022-04-23 17:01] LABS: Glucose Point of Care 199 mg/dl (65-105)
[2022-04-23 20:40] LABS: Glucose Point of Care 214 mg/dl (65-105)
[2022-04-24] VITALS (11 sets, daily range): BP systolic 124–142; BP diastolic 65–86; PULSE 86–103; RESP 16–19; TEMP 35.5–36.1; O2SAT 93–98
--- NOTE | 2022-04-24 | ECHO_ITS ---
Patient Info Name: Braden Costa Age: 71 years : 1950 Gender: Male Ht: 68 in Wt: 260 lbs BSA: 2.43 m2 BP: 142 / 65 mmHg Heart Rhythm: Paced Exam Date: 04/24/2022 8:36 AM Exam Location: [facility] Patient Status: Inpatient Admit Date: 04/23/2022 Staff Ordering Physician: Bi Odom MD Legal Officer: Prabhjot Betancourt, VANESSA, RT Attending Provider: Bi Odom MD Referring Physician: Ilene WORRELL; Exam Type: CA echo doppler color flow Study Info Indications I50.9 - Heart failure, unspecified Complete two-dimensional, color flow and Doppler transthoracic echocardiogram is performed with contrast to opacify the left ventricle and to improve the deliniation of the left ventricle endocardial borders. Strain analysis performed. Summary 1. Left ventricular chamber dimension is normal. 2. Left ventricular systolic function is mildly reduced, estimated at 45-50% akinesis of the inferior and inferolateral wall hypokinesis of the anterolateral wall.. 3. There is moderate to severe concentric increased left ventricular wall thickness. 4. Left ventricular septal wall motion is abnormal with septal motion related to pacing. 5. The left ventricular diastolic function is grade II diastolic dysfunction. 6. Right atrial chamber dimension is moderately enlarged. 7. Left atrial chamber dimension is severely enlarged. 8. There is mild to moderate aortic valve regurgitation. 9. There is mild tricuspid valve regurgitation. 10. Moderate pulmonary hypertension, estimated pulmonary arterial systolic pressure is 49 mmHg. 11. The prox ascending aorta size is severely dilated at 5.2cm. Consider CT chest if clinically indicated. 12. The aortic root size at the sinus of Valsalva is moderately dilated. Left Ventricle Left ventricular chamber dimension is normal. Left ventricular systolic function is mildly reduced, estimated at 45-50% akinesis of the inferior and inferolateral wall hypokinesis of the anterolateral wall.. There is moderate to severe concentric increased left ventricular wall thickness. Left ventricular septal wall motion is abnormal with septal motion related to pacing. The left ventricular diastolic function is grade II diastolic dysfunction. Right Ventricle Right ventricular chamber dimension is normal. Right ventricular systolic function is normal. Linear artifact in right ventricle suggestive of catheter(s), pacemaker lead(s), or ICD lead(s). Left Atria Left atrial chamber dimension is severely enlarged. Right Atria Right atrial chamber dimension is moderately enlarged. Linear artifact in the right atrium suggestive of catheter(s), pacemaker lead(s), or ICD lead(s). Aortic Valve The aortic valve is not well visualized. There is no aortic valve stenosis. There is mild to moderate aortic valve regurgitation. There is mild aortic valve calcification. Pulmonic Valve The pulmonic valve is not well visualized. There is trace pulmonic regurgitation. Mitral Valve The mitral valve has thickened leaflets. There is mild mitral valve regurgitation. The mitral valve annulus is mildly calcified. Tricuspid Valve The tricuspid valve leaflets are normal. There is mild tricuspid valve regurgitation. Moderate pulmonary hypertension, estimated pulmonary arterial systolic pressure is 49 mmHg. Pericardium/Pleural The pericardium appears normal. There is trivial pericardial effusion. Inferior Vena Cava Normal inferior vena cava with >50% collap
[2022-04-24] MEDS: methylPREDNISolone SOD SUCC 125 MG VIAL 60 MG IV PUSH (05:03)
[2022-04-24 06:33] LABS: Basophils Percent Auto 0.1 % (0.2-1.2); Eosinophils Percent Auto 0.1 % (0-4.4); Hematocrit 43.9 % (42.0-52.0); Hemoglobin 14.9 g/dL (14.0-18.0); Immature Granulocyte Absolute 0.04 K/mm3 (0.00-0.031); Immature Granulocyte Percent A 0.5 % (0-0.5); Lymphocytes Absolute Auto 0.67 K/mm3 (0.9-3.2); Lymphocytes Percent Auto 7.8 % (18.3-44.2); Mean Corpuscular HGB Conc 33.9 g/dl (32-36); Mean Corpuscular Hemoglobin 30.2 pg (26-34); Mean Corpuscular Volume 88.9 fl (80-100); Mean Platelet Volume 12.2 fl (7.4-10.4); Monocytes Absolute Auto 0.2 K/mm3 (0.1-0.6); Neutrophils Absolute Auto 7.7 K/mm3 (1.3-6.7); Neutrophils Percent Auto 89.5 % (45.5-73.1); Platelet Count Result 154 k/mm3 (150-375); Red Blood Count 4.94 M/mm3 (4.6-6.20); Red Cell Distribution Width 15.3 % (11.5-14.5); White Blood Count 8.6 K/mm3 (4.5-10.0)
[2022-04-24 07:00] LABS: Anion Gap 10 mmol/L (8-16); Blood Urea Nitrogen 29 mg/dL (9-20); Calcium 8.2 mg/dL (8.4-10.2); Carbon Dioxide 23 mmol/L (22-30); Chloride 98 mmol/L (98-107); Estimated CRCL calculation 91 ml/min; Estimated Glomerular Filt Rate > 60; Glucose 176 mg/dL (65-110); Potassium 3.7 mmol/L (3.4-5.0); Sodium 131 mmol/L (137-145)
[2022-04-24 08:05] LABS: Glucose Point of Care 164 mg/dl (65-105)
[2022-04-24] MEDS: FUROSEMIDE INJ 40 MG/4 ML VIAL IV PUSH (08:14)
[2022-04-24] MEDS: lisinopriL 10 MG TABLET PO (08:14)
[2022-04-24] MEDS: ATORVASTATIN 40 MG TABLET 80 MG PO (08:14)
[2022-04-24] MEDS: APIXABAN 5 MG TABLET PO (08:14)
[2022-04-24] MEDS: METOPROLOL SUCCINATE EXT REL 100 MG TABCR 200 MG PO (08:14)
[2022-04-24] MEDS: prednisoLONE ACETATE 1% OPHTH 5 ML 1 DROP EACH EYE (08:15)
[2022-04-24] MEDS: FAMOTIDINE 20 MG TABLET PO (08:15)
[2022-04-24] MEDS: PERFLUTREN LIPID MICROSPHERES 1.5 ML VIAL DILUTED TO 10 ML TOTAL VOLUME IV PUSH (09:05)
--- NOTE | 2022-04-24 09:06 | IVDEFINITY ---
Prior to administration of IV Definity the patient was educated on the risks and benefits of the imaging enhancing agent including potential adverse side effects. The patient verbalized understanding. Allergies were verified. No exclusion criteria were identified and at least one of the following inclusion criteria were met: 1) physician request, 2) patient technically difficult to image (per the [place] [employer]ocardi[employer] guidelines of two or more segments not discernable within the apical view), or 3) questionable left ventricular function. ?
--- NOTE | 2022-04-24 11:07 | PM.DS ---
DS: Admitting Diagnosis Discharge Date 04/24/22 Admitting Diagnosis copd DS: Discharge Diagnosis Discharge Diagnosis (1) CHF (congestive heart failure): Code(s): I50.9 - Heart failure, unspecified Status: Acute Assessment and Plan: Admit to IMU Aggressive diuresis Echocardiogram in a.m. Daily Strict intake and output Daily BMP Daily weights Supportive care Continue to monitor (2) Acute respiratory failure with hypoxia: Code(s): J96.01 - Acute respiratory failure with hypoxia Status: Acute Assessment and Plan: Supportive care Scheduled breathing treatments Try and keep oxygen saturation at 94% (3) COPD (chronic obstructive pulmonary disease): Code(s): J44.9 - Chronic obstructive pulmonary disease, unspecified Status: Acute Assessment and Plan: Continue breathing treatments (4) T2DM (type 2 diabetes mellitus): Code(s): E11.9 - Type 2 diabetes mellitus without complications Status: Acute Assessment and Plan: Holding metformin Insulin sliding scale as needed (5) Atrial fibrillation: Code(s): I48.91 - Unspecified atrial fibrillation Status: Acute Assessment and Plan: Rate control and anticoagulated DS: Summary Hospital Course Hospital Course: admitted for copd dc on prednisone and nebs doing much better Time Spent with Patient Time attestation: Total time spent providing and/or coordinating discharge services: Exam Narrative: Patient is laying in a stretcher on BiPAP Const: General: comfortable, no acute distress, well developed, alert, awake and average body habitus Nutritional Appearance: average body habitus Orientation/consciousness: patient oriented x3 HENMT: Head: normal to inspection, normocephalic and atraumatic Ears: hearing grossly normal bilaterally Face/Nose/Sinus: normal facial exam Face and sinus: normal facial exam Eyes: General: appearance normal, both eyes and all related structures Pupils: Equal, round and reactive pupils present EOM: EOMs intact bilaterally Neck: Neck: full ROM, no lymphadenopathy and no JVD Thyroid: thyroid normal Lymphatic: no lymphadenopathy noted Resp: Effort & Inspection: normal respiratory effort and able to speak in complete sentences Auscultation: crackles bilateral, wheezes and diminished lung sounds Cardio: Jugular venous distension: no JVD Rate: regular rate Rhythm: regular rhythm Heart sounds: S1 normal heart sound present and S2 normal heart sound present GI: Inspection: obesity : General: Yes deferred Skin: Rashes: no rashes Wounds: no wounds Neuro: General: patient oriented x3, CN's II-XI intact bilaterally and Unable to assess gait Cranial nerves: Yes CN's II-XII intact bilaterally and Yes Equal, round and reactive pupils present Cognition (Neuro): normal cognition Speech: normal speech Gait exam (Neuro): Unable to assess gait Motor exam (neuro): 5/5 motor strength present throughout Extrem: General: normal to inspection, full ROM, no joint enlargement and no pedal edema DS: Data Data Completed and Pending Labs on day of discharge: Labs from last 24 hours 04/24/22 04/24/22 04/24/22 08:02 06:15 06:15 WBC 8.6 RBC 4.94 Hgb 14.9 Hct 43.9 MCV 88.9 MCH 30.2 MCHC 33.9 RDW 15.3 H Plt Count 154 MPV 12.2 H Immature Gran % (Auto) 0.5 Neut % (Auto) 89.5 H Lymph % (Auto) 7.8 L Dickinson % (Auto) 2.0 L Eos % (Auto) 0.1 Baso % (Auto) 0.1 L Lymph # (Auto) 0.67 L Dickinson # (Auto) 0.2 Eos # (Auto) 0.0 Baso # (Auto) 0.0 Abs Immat Gran (auto) 0.04 H Absolute Neuts (auto) 7.7 H Absolute Nucleated RBC 0.0 Nucleated RBC % 0.0 Sodium 131 L Potassium 3.7 Chloride 98 Carbon Dioxide 23 Anion Gap 10 BUN 29 H Creatinine 0.80 Estim Creat Clear Calc 91 Estimated GFR > 60 Glucose 176 H POC Capillary Glucose 164 H Calcium 8.2 L 04/23/22
--- NOTE | 2022-04-24 11:58 | HOMEO2EVAL ---
Evaluation was performed at [facility] Home Oxygen Evaluation RC: Home Oxygen (O2) Evaluation Start: 04/24/22 11:05 Freq: ONCE Status: Active Protocol: RPE Activity Type Activity Date Activity User E-sign Co-sign Detail Recorded Client Recorded Date Recorded By Document 04/24/22 11:50 KRM [email or web address] 04/24/22 11:58 KRM Document 04/24/22 11:54 KRM [email or web address] 04/24/22 11:58 KRM 04/24/22 04/24/22 11:50 11:54 Home O2 Evaluation [Oxygen] -Test Phase Resting Exercise -Oxygen Delivery Room Air Room Air [Pulse Oximetry] -Pulse Oximetry (90-100 %) 94 93 [Pulse Rate] -Pulse Rate (60-100 beats/min) 100 103 H [Evaluation] -Activity Tolerance Good [Exercise] -Ambulation Distance (feet) 100 -Ambulation Distance (meters) 30.47 [Comments] -Home Oxygen Evaluation Comments no supplemental o2 needed. [Charges] -Treatment Charges O2 Evaluation - Inpatient
--- NOTE | 2022-04-24 12:06 | P.CDI_ITS ---
CDI Query Clarified Diagnosis Clarified Diagnosis: CHF noted on the assessment and plan. Documented history of CHF. Elevated BNP on 04/22/22 lab work. Pt receiving IV Lasix. Pt takes Lasix as a home medication. Please specify type and acuity of heart failure if known. * Acute * Chronic * Acute on Chronic * Unknown * Systolic * Diastolic * Combined Systolic and Diastolic * Unknown
[2022-04-24 12:13] LABS: Glucose Point of Care 209 mg/dl (65-105)
[2022-04-24] MEDS: IPRATROPIUM BR 0.02% INH SOLN 0.5 MG/2.5 ML VIAL INHALATION (13:23)
[2022-04-24] MEDS: ALBUTEROL SULFATE NEB 2.5 MG/3 ML INH INHALATION (13:23)
== END 2022-04-24 14:55 | disposition home or self-care (01) | DRG 291 ==
LOC: ANHED 23:25 → ANHIMU 04-23 00:17 → ANH3MEDSUR 04-23 12:17
PROVIDERS: Admitting Provider Internal Medicine; Emergency Provider Emergency Medicine; PCP Hospitalist; Visit Provider Chiropractor
DX: I50.9 Heart failure, unspecified (principal); J96.01 Acute respiratory failure with hypoxia; I48.91 Unspecified atrial fibrillation; Z20.822 Contact with and (suspected) exposure to COVID-19; J44.9 Chronic obstructive pulmonary disease, unspecified; E11.9 Type 2 diabetes mellitus without complications; Z87.891 Personal history of nicotine dependence; Z79.84 Long term (current) use of oral hypoglycemic drugs
CPT/HCPCS: 36415; 36600; 71045; 80048; 80053; 81001; 82805; 82948; 83605; 83735; 83880; 84145; 84484; 85025; 85610; 85730; 87040; 87637; 93005; 93306; 94002; 94618; 94640; 96361; 96374; 96375; 96376; 99285; A9270; G0378; J1940; J2930; J7030; Q9957